=== PATIENT | female | born 1970 | race African-American/Black ===

== ENCOUNTER 2016-08-30 11:17 | Emergency (ER) | payer OTHER ==
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
[~2016-08-30 11:17] MED LIST: BIOTIN5 MG PO; HYDROCODON-ACE1 EAC9 PO; LIPITOR40 MG PO; MULTI VITAMIN1 EACH PO; VALTREX PO
== END 2016-08-30 11:50 | disposition home or self-care (01) ==
LOC: SED 11:17
DX: S39.012A Strain of muscle, fascia and tendon of lower back, initial encounter (principal); V49.40XA Driver injured in collision with unspecified motor vehicles in traffic accident, initial encounter; Y93.89 Activity, other specified; Y92.410 Unspecified street and highway as the place of occurrence of the external cause
CPT/HCPCS: 72100; 99283